=== PATIENT | female | born 1940 | race Caucasian/White ===

== ENCOUNTER → 2016-09-23 | Outpatient (CLI) | payer MEDICARE, OTHER ==
--- NOTE | 2016-09-23 10:43 | US ---
EXAM DESCRIPTION: US LIVER CLINICAL HISTORY: 76 y/o F, ELEVATED LFT COMPARISON: None TECHNIQUE: Grayscale imaging of the the liver was performed. Static images were saved to the patient's medical record. FINDINGS: The liver is echogenic measuring 15.3 cm in diameter. No mass noted. The common bile duct measures 4 mm in diameter. No intrahepatic biliary duct dilatation. The gallbladder has been removed. The pancreas is grossly unremarkable. The distal body and tail are not imaged due to overlying bowel gas. IMPRESSION: Today's exam demonstrates an echogenic liver which can be seen in setting of fatty infiltration or hepatocellular disease. No evidence of mass or biliary duct dilatation. Patient is status post cholecystectomy. Electronically signed by: Raoul Phillips MD 09/23/2016 10:41
== END ==
LOC: US 08:15
PROVIDERS: ATTEND Family Medicine
DX: R94.5 Abnormal results of liver function studies (principal); Z90.49 Acquired absence of other specified parts of digestive tract

== ENCOUNTER → 2016-09-24 | Outpatient (CLI) | payer MEDICARE, OTHER | LOC: GMAM 14:52 | PROVIDERS: ATTEND Family Medicine | DX: K76.0 Fatty (change of) liver, not elsewhere classified (principal); M06.9 Rheumatoid arthritis, unspecified ==

== ENCOUNTER → 2017-07-13 | Outpatient (CLI) | payer MEDICARE, OTHER | LOC: GMAM 22:30 | PROVIDERS: ATTEND Family Medicine | DX: R53.83 Other fatigue (principal); D51.3 Other dietary vitamin B12 deficiency anemia; E55.9 Vitamin D deficiency, unspecified ==

== ENCOUNTER → 2017-08-13 | Outpatient (CLI) | payer MEDICARE, OTHER | END | disposition home or self-care (01) | LOC: GMA 20:14 | PROVIDERS: ATTEND Nurse Practitioner Family | DX: N39.0 Urinary tract infection, site not specified (principal) ==

== ENCOUNTER → 2017-09-10 | Outpatient (CLI) | payer MEDICARE, OTHER | LOC: GMAM 14:08 | PROVIDERS: ATTEND Family Medicine | DX: R55 Syncope and collapse (principal); G25.0 Essential tremor ==

== ENCOUNTER → 2017-09-14 | Outpatient (CLI) | payer MEDICARE, OTHER ==
--- NOTE | 2017-09-14 17:56 | MRI ---
Procedure: MR BRAIN WITHOUT IV CONTRAST Exam Date: 09/14/2017 12:00 AM [employer] Ordering Provider: DAMION PATEL Clinical Indication: SYNCOPE Comparison: None Technique: Multiplanar, multisequence images of the brain were obtained without administration of intravenous gadolinium based contrast. Findings: No evidence of diffusion restriction to suggest acute infarct. 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 Global parenchymal volume loss is present. There is no extra-axial fluid collection. No acute or chronic intracranial hemorrhage is seen. There is a remote subcentimeter lacunar infarction involving the anterior limb of the left internal capsule. No evidence of cerebellar tonsillar herniation. Sellar/suprasellar structures are intact. The cervicomedullary junction is within normal limits. Impression: No acute infarction. Moderate to severe microvascular ischemic changes. Remote lacunar infarction involves the left internal capsule. Electronically signed by: Christa Boo MD 09/14/2017 5:55 PM [employer]
== END ==
LOC: MRI 11:00
PROVIDERS: ATTEND Family Medicine
DX: R55 Syncope and collapse (principal); G25.0 Essential tremor; R29.898 Other symptoms and signs involving the musculoskeletal system; E16.1 Other hypoglycemia; R03.0 Elevated blood-pressure reading, without diagnosis of hypertension; Z91.81 History of falling

== ENCOUNTER → 2018-01-05 | Outpatient (CLI) | payer MEDICARE, OTHER | LOC: GMAM 12:13 | PROVIDERS: ATTEND Family Medicine | DX: E53.8 Deficiency of other specified B group vitamins (principal); E55.9 Vitamin D deficiency, unspecified ==

== ENCOUNTER → 2018-06-15 | Outpatient (CLI) | payer MEDICARE, OTHER | LOC: GMAM 14:01 | PROVIDERS: ATTEND Family Medicine | DX: E53.8 Deficiency of other specified B group vitamins (principal); E55.9 Vitamin D deficiency, unspecified ==

== ENCOUNTER → 2018-12-28 | Outpatient (CLI) | payer MEDICARE, OTHER ==
--- NOTE | 2018-12-28 17:23 | US ---
EXAM DESCRIPTION: Venous,Lower Extremity RT CLINICAL HISTORY: EDEMA of the right lower extremity COMPARISON: None Available. TECHNIQUE: Right lower extremity venous duplex FINDINGS: Doppler evaluation of the right lower extremity deep veins was performed. Normal color flow is seen in the common femoral, superficial femoral, profunda femoral and greater saphenous veins. Normal flow is seen in the popliteal vein and veins below the knee in the calf. Normal venous compressibility and flow augmentation. Popliteal fossa 's cyst measures 2.4 x 1 x 4.1 cm. IMPRESSION: Negative for evidence of deep venous thrombosis on right lower extremity venous Doppler sonogram. Electronically signed by: Billy James MD 12/28/2018 5:20 PM CDT
== END ==
LOC: US 12:57
PROVIDERS: ATTEND Family Medicine
DX: R60.0 Localized edema (principal); D50.9 Iron deficiency anemia, unspecified; E53.8 Deficiency of other specified B group vitamins; E55.9 Vitamin D deficiency, unspecified; I10 Essential (primary) hypertension

== ENCOUNTER 2019-02-28 05:39 | Day surgery (SDC) | payer MEDICARE, OTHER ==
[2019-02-28] MEDS ORDERED: MOXIFLOXACIN HCL (OPHTH) 1 DROP DROPS ONE (05:58)
[2019-02-28] MEDS ORDERED: PROPARACAINE 0.5% OPHTH SOL 15 ML BTTL ONE (05:58)
[2019-02-28] MEDS ORDERED: TROP 1%/CYCLOPEN 1%/PHENYL 2% DROPS ONE (05:58)
[2019-02-28] MEDS ORDERED: MIDAZOLAM INJ 2 MG/2 ML VIAL ONE (09:06)
[2019-02-28] MEDS ORDERED: PROPARACAINE 0.5% OPHTH SOL 15 ML BTTL LEFT_EYE ONE (09:20)
[2019-02-28] MEDS ORDERED: LIDOCAINE 1% MPF 2 ML VIAL INJ ONE (09:27)
[2019-02-28] MEDS ORDERED: BRIMONIDINE 0.2% OPHTH DROPS LEFT_EYE ONE ×2 (09:35→09:42)
[2019-02-28] MEDS ORDERED: DEXAMETHASONE 0.1% OPHTH SOL 1 DROP LEFT_EYE ONE ×2 (09:35→09:42)
[2019-02-28] MEDS ORDERED: MOXIFLOXACIN HCL (OPHTH) 1 DROP DROPS LEFT_EYE ONE ×2 (09:35→09:40)
[2019-02-28] MEDS ORDERED: TOBRAMYCIN SULF 0.3 % OPHT SOL 1 DROP LEFT_EYE ONE ×2 (09:35→09:42)
== END 2019-02-28 10:16 | disposition home or self-care (01) ==
LOC: AMB 05:39
PROVIDERS: ATTEND Ophthalmology
DX: H25.12 Age-related nuclear cataract, left eye (principal); Z79.899 Other long term (current) drug therapy
CPT/HCPCS: 00142; 66984; J2250

== ENCOUNTER 2019-03-14 05:44 | Day surgery (SDC) | payer MEDICARE, OTHER ==
[2019-03-14] MEDS ORDERED: MIDAZOLAM INJ 2 MG/2 ML VIAL ONE (06:56)
[2019-03-14] MEDS ORDERED: PROPARACAINE 0.5% OPHTH SOL 15 ML BTTL RIGHT_EYE ONE (08:10)
[2019-03-14] MEDS ORDERED: LIDOCAINE 1% MPF 2 ML VIAL INJ ONE (08:16)
[2019-03-14] MEDS ORDERED: DEXAMETHASONE 0.1% OPHTH SOL 1 DROP RIGHT_EYE ONE ×2 (08:19→08:30)
[2019-03-14] MEDS ORDERED: MOXIFLOXACIN HCL (OPHTH) 1 DROP DROPS RIGHT_EYE ONE ×2 (08:19→08:29)
[2019-03-14] MEDS ORDERED: BRIMONIDINE 0.2% OPHTH DROPS RIGHT_EYE ONE ×2 (08:20→08:30)
[2019-03-14] MEDS ORDERED: TOBRAMYCIN SULF 0.3 % OPHT SOL 1 DROP RIGHT_EYE ONE ×2 (08:20→08:30)
== END 2019-03-14 09:15 | disposition home or self-care (01) ==
LOC: AMB 05:44
PROVIDERS: ATTEND Ophthalmology
DX: H25.11 Age-related nuclear cataract, right eye (principal); Z79.899 Other long term (current) drug therapy
CPT/HCPCS: 00142; 66984; J2250

== ENCOUNTER → 2019-04-20 | Outpatient (CLI) | payer MEDICARE, OTHER | LOC: GMAM 10:47 | PROVIDERS: ATTEND Family Medicine | DX: E53.8 Deficiency of other specified B group vitamins (principal); I10 Essential (primary) hypertension; E78.2 Mixed hyperlipidemia; E55.9 Vitamin D deficiency, unspecified ==